=== PATIENT | female | born 1955 | race Caucasian/White ===

== ENCOUNTER → 2020-12-12 | Day surgery (SDC) | payer MEDICARE ==
[~2020-12-12] MED LIST: AMBIEN10 MG PO; BUPROPION XL300 MG PO; CYCLOBENZAPRINE10 MG PO; DIAZEPAM5 MG PO; FERREX 150150 MG PO; FLEXERIL5 MG PO; LOVAZA1 GM PO; MELOXICAM15 MG PO; METFORMIN HCL500 M3 PO; MONTELUKAST SOD10 MG PO; NORCO 5/3251 EACH PO; OMEPRAZOLE 20MG20 MG PO; PRAVASTATIN SOD80 MG PO; PREMARIN0.45 MG PO; PROAIR HFA8.5 GM INH; PROMETHAZINE-D473 M1 PO; SERTRALINE HCL100 MG PO; VALSARTAN320 MG PO; VITAMIN B122500 MC1 PO; VITAMIN D350 MC5 PO; ZOLPIDEM TARTRA10 MG PO; [UNRECOGNIZED DRUG - OTHER] XX
[2020-12-12 08:45] LABS: CREATININE 0.74 mg/dL (0.51-0.95); POTASSIUM 4.5 mmol/L (3.5-5.1)
== END | disposition home or self-care (01) ==
LOC: FAS 07:31
PROVIDERS: Anesthesiology
DX: D17.22 Benign lipomatous neoplasm of skin and subcutaneous tissue of left arm (principal); J45.909 Unspecified asthma, uncomplicated; K21.9 Gastro-esophageal reflux disease without esophagitis; E78.00 Pure hypercholesterolemia, unspecified; E11.9 Type 2 diabetes mellitus without complications; I10 Essential (primary) hypertension; F41.9 Anxiety disorder, unspecified; M19.90 Unspecified osteoarthritis, unspecified site; M17.10 Unilateral primary osteoarthritis, unspecified knee; M81.0 Age-related osteoporosis without current pathological fracture; G47.30 Sleep apnea, unspecified; Z79.84 Long term (current) use of oral hypoglycemic drugs; Z20.822 Contact with and (suspected) exposure to COVID-19; Z79.899 Other long term (current) drug therapy; Z98.890 Other specified postprocedural states; Z82.49 Family history of ischemic heart disease and other diseases of the circulatory system
CPT/HCPCS: 36415; 80048; 82962; 93005; J0690; J2250; J2405; J2704; J3010; J7120